=== PATIENT | female | born 1985 | race Caucasian/White ===

== ENCOUNTER → 2017-12-21 | Outpatient (CLI) | payer MEDICAID ==
--- NOTE | 2017-12-21 10:29 | RADIOLOGY REPORT (SQ) ---
EXAM DESCRIPTION: CT PELVIS COMBO COMPLETED DATE/TIME: 12/21/2017 8:17 am REASON FOR STUDY: RLQ PAIN R10.31 RIGHT LOWER QUADRANT PAIN COMPARISON: 10/23/2015 TECHNIQUE: CT scan of the pelvis performed without and with intravenous contrast and with oral contr ast. Images reviewed with soft tissue and bone windows. Reconstructed coronal and sagittal MPR imag es reviewed. All images stored on PACS. All CT scanners at this facility use dose modulation, iterative reconstruction, and/or weight based d osing when appropriate to reduce radiation dose to as low as reasonably achievable (ALARA). [facility]: Dose Right [facility]: CareDose [facility]: Dose Right [facility]: Teradose 4D [facility]: [employer] RADIATION DOSE: CT Rad equipment meets quality standard of care and radiation dose reduction techniq ues were employed. CTDIvol: 12.2 - 13.9 mGy. DLP: 1250 mGy-cm. mGy. LIMITATIONS: None. FINDINGS: PELVIC BONES: No acute fracture. No worrisome bone lesions. VISUALIZED SPINE: No acute findings. HIP(S): No acute fracture or dislocation. No worrisome bone lesions. PELVIC SOFT TISSUES: Normal. Normal appendix. EXTRAPELVIC SOFT TISSUES: No significant findings. OTHER: No other significant finding. IMPRESSION: NO ACUTE OR SIGNIFICANT FINDINGS. TECHNICAL DOCUMENTATION: JOB ID: [id number] Quality ID # [id number]: Final reports with documentation of one or more dose reduction techniques (e.g., Au tomated exposure control, adjustment of the mA and/or kV according to patient size, use of iterative reconstruction technique) 2010 [employer]- All Rights Reserved Reading location - IP/workstation name: [email or web address]
== END ==
LOC: RAD 07:45
PROVIDERS: ATTEND Specialist
DX: R10.31 Right lower quadrant pain (principal)
CPT/HCPCS: 72194; 82565

== ENCOUNTER 2018-03-10 01:45 | Emergency (ER) | payer MEDICAID ==
[2018-03-10] MEDS ORDERED: KETOROLAC TROMETHAMINE INJ/PF 30 MG/1 ML SDV IV ONE (02:27)
--- NOTE | 2018-03-10 02:29 | ER Document Report ---
ED GI/ - General Chief Complaint: Lower Abdominal Pain Stated Complaint: ABDOMINAL PAIN Time Seen by Provider: 03/10/18 02:16 Primary Care Provider: POPPY ARMSTRONG MD [EMERITUS] - Follow up as needed Notes: Patient is a 33-year-old female that comes to the emergency department for chief complaint of sharp pain in the right lower abdominal/pelvic area. She states she intermittently gets pains, usually on the side, frequently at the time of her menstrual cycle, however she is not currently on her menstrual cycle and this pain is worse than usual. She does have a history of kidney stones but states this feels very different. Uncertain of history of ovarian cysts. Denies dysuria, vaginal discharge or bleeding, fever/chills, nausea/vomiting. Some difficulty moving her bowels at times but not recently noticeable. Past medical history of . She states she recently had a pelvic exam which was normal. Denies any other medical history. TRAVEL OUTSIDE OF THE [place] IN LAST 30 DAYS: No - Related Data Allergies/Adverse Reactions: latex [Latex] Allergy (Severe, Verified 03/10/18 03:59) Anaphylaxis Penicillins Allergy (Severe, Verified 03/10/18 03:59) Anaphylaxis acetaminophen [From Vicodin] Allergy (Mild, Verified 03/10/18 03:59) VOMITING hydrocodone [From Vicodin] Allergy (Verified 03/10/18 03:59) VOMITING Past Medical History - General Information source: Patient - Social History Smoking Status: Never Smoker Frequency of alcohol use: None Drug Abuse: None Lives with: Family Family History: Reviewed & Not Pertinent Pulmonary Medical History: Reports: Hx Asthma Endocrine Medical History: Reports: Hx Diabetes Mellitus Type 2 Renal/ Medical History: Reports: Hx Kidney Stones Past Surgical History: Reports: Hx Section, Hx Gynecologic Surgery - LEEP, Hx Orthopedic Surgery - right ankle, Hx Tonsillectomy - Immunizations Hx Diphtheria, Pertussis, Tetanus Vaccination: Yes Review of Systems - Review of Systems Constitutional: No symptoms reported EENT: No symptoms reported Cardiovascular: No symptoms reported Respiratory: No symptoms reported Gastrointestinal: See HPI Genitourinary: See HPI Female Genitourinary: See HPI Musculoskeletal: No symptoms reported Skin: No symptoms reported Hematologic/Lymphatic: No symptoms reported Neurological/Psychological: No symptoms reported Physical Exam - Vital signs Vitals: Temp Pulse Resp BP Pulse Ox 98.8 F 80 18 136/91 H 98 03/10/18 01:58 03/10/18 01:58 03/10/18 01:58 03/10/18 01:58 03/10/18 01:58 - Notes Notes: GENERAL: Alert, interacts well. No acute distress. HEAD: Normocephalic, atraumatic. EYES: Pupils equal, round, and reactive to light. Extraocular movements intact. ENT: Oral mucosa moist, tongue midline. Oropharynx unremarkable. Airway patent. Nares patent, no nasal septal hematoma, TM's intact. NECK: Full range of motion. Supple. Trachea midline. LUNGS: Clear to auscultation bilaterally, no wheezes, rales, or rhonchi. No respiratory distress. HEART: Regular rate and rhythm. No murmur ABDOMEN: General tenderness over the right lower abdomen and right pelvic area. No particular area of guarding, no specific McBurney's tenderness. No rigidity or distention. GENITOURINARY: Minimal whitish vaginal discharge, no cervical motion tenderness, no lesions, no bleeding, no concerning findings otherwise. Exam performed with Ernie RN at bedside. EXTREMITIES: Moves all 4 extremities spontaneously. No edema, normal radial and dorsalis pedis pulses bilaterally. No cyanosis. BACK: no cervical, thoracic, lumbar midline tenderness. No saddle anesthesia, normal distal neurovascular exam. NEUROLOGICAL: Alert and oriented x3. Normal speech. [cranial nerves II through XII grossly intact]. PSYCH: Normal affect, normal mood. SKIN: Warm, dry, normal turgor. No rashes or lesions noted. Course - Re-evaluation Re-evalutation: CBC, chemistry, urinalysis unremarkable. But is a test is negative. Ultrasound does not show ovarian cyst or concerning findings. Pelvic examination showing bacterial vaginosis but no other concerning finding. Because of patient's difficulty with bowel movements, negative workup to this point, I suspect she most likely has bowel source of her symptoms, probably stool retention. I do not suspect acute appendicitis based on her examination, on repeat examination her exam is actually very benign. I discussed different options including x-ray, CAT scan, medical therapy. At this time patient will be treated medically for suspected stool retention, treated for bacterial vaginosis, and strict return precautions were discussed. Discussed follow-up recommendations. Patient states understanding and agreement. Stable at time of discharge. - Vital Signs Vital signs: Temp Pulse Resp BP Pulse Ox 98.7 F 78 16 125/78 100 03/10/18 05:58 03/10/18 05:58 03/10/18 05:58 03/10/18 05:58 03/10/18 05:58 - Laboratory Result Diagrams: 03/10/18 03:05 03/10/18 03:05 Laboratory results interpreted by me: 03/10/18 03/10/18 03:05 03:05 Hgb 15.8 H Carbon Dioxide 34 H Discharge - Discharge Clinical Impression: Lower abdominal pain Condition: Stable Disposition: HOME, SELF-CARE Additional Instructions: Your ultrasound does not show any concerning findings. Your general workup does not show any other normality except bacterial vaginosis. You have been prescribed Flagyl for the bacterial vaginosis, however I suspect the cause of your pain is from your bowel. I recommend that you drink 1/4 to 1/2 of the bottle of magnesium citrate initially, wait a few hours, if no results drink the rest of the bottle, if symptoms continue I recommend that you take the Colace for the next 3 days or so as prescribed, use the Phenergan for nausea if needed, use the Bentyl for cramping if needed. Follow-up with primary care. Return if you worsen including severe worsening pain, vomiting, fever, or any other concerning or worsening symptoms. Prescriptions: Dicyclomine HCl [Bentyl 20 mg Tablet] 20 mg PO QID #20 tablet Docusate Sodium [Colace 100 mg Capsule] 100 mg PO ASDIR PRN #30 capsule PRN Reason: Metronidazole [Flagyl 500 mg Tablet] 500 mg PO BID 7 Days #14 tablet Promethazine HCl [Phenergan 25 mg Tablet] 25 mg PO Q6H PRN #15 tablet PRN Reason: Forms: Return to Work Referrals: POPPY ARMSTRONG MD [EMERITUS] - Follow up as needed
[2018-03-10 03:17] LABS: ABSOLUTE BASOPHILS # (AUTO) 0.1 10^3/uL (0.0-0.2); ABSOLUTE EOSINOPHILS # (AUTO) 0.2 10^3/uL (0.0-0.6); ABSOLUTE LYMPHOCYTES (AUTO) 2.6 10^3/uL (0.5-4.7); ABSOLUTE MONOCYTES (AUTO) 0.7 10^3/uL (0.1-1.4); ABSOLUTE NEUT (AUTO) 5.2 10^3/uL (1.7-8.2); BASOPHILS % (AUTO) 0.7 % (0-2); EOSINOPHILS % (AUTO) 1.7 % (0-6); HEMATOCRIT 45.6 % (36.0-47.0); HEMOGLOBIN 15.8 g/dL (12.0-15.5); MEAN CORPUSCULAR HEMOGLOBIN 31.8 pg (27.0-33.4); MEAN CORPUSCULAR HGB CONC 34.6 g/dL (32.0-36.0); MEAN CORPUSCULAR VOLUME 92 fl (80-97); MONOCYTES % (AUTO) 7.9 % (3-13); PLATELET COUNT 307 10^3/uL (150-450); RED BLOOD COUNT 4.97 10^6/uL (3.72-5.28); RED CELL DISTRIBUTION WIDTH 12.7 % (11.5-14.0); SEGMENTED NEUTROPHILS % (AUTO) 59.7 % (42-78); TOTAL CELLS COUNTED % (AUTO) 100 %; WHITE BLOOD COUNT 8.8 10^3/uL (4.0-10.5)
[2018-03-10 03:27] LABS: ANION GAP 8 (5-19); BLOOD UREA NITROGEN 9 mg/dL (7-20); CALCIUM 9.9 mg/dL (8.4-10.2); CARBON DIOXIDE 34 mmol/L (22-30); CHLORIDE 103 mmol/L (98-107); GLUCOSE 100 mg/dL (75-110); POTASSIUM 3.9 mmol/L (3.6-5.0); SODIUM 144.8 mmol/L (137-145)
[2018-03-10 03:28] LABS: AMORPHOUS SEDIMENT,URINE TRACE /HPF; APPEARANCE,URINE SLIGHTLY-CLOUDY; BILIRUBIN,URINE NEGATIVE (NEGATIVE); COLOR,URINE YELLOW; GLUCOSE, URINE NEGATIVE (NEGATIVE); KETONES,URINE NEGATIVE (NEGATIVE); LEUKOCYTE ESTERASE,URINE NEGATIVE (NEGATIVE); NITRITE,URINE NEGATIVE (NEGATIVE); PROTEIN,URINE NEGATIVE (NEGATIVE); URINE SPECIFIC GRAVITY 1.015; UROBILINOGEN,URINE NEGATIVE mg/dL (<2.0)
--- NOTE | 2018-03-10 03:45 | RADIOLOGY REPORT (SQ) ---
CLINICAL HISTORY: sharp right pelvic pain COMPARISON: None. 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 Endometrial measures 9 mm. Cervix measures 2.7 cm. The right ovary measures 3.1 x 1.9 x 2.3 cm and left ovary measures 2.8 x 2.7 x 2.3 cm. There is patent flow to both ovaries. IMPRESSION: Unremarkable study.
[2018-03-10] MEDS ORDERED: NORMAL SALINE 1000 ML 1,000 ML IV ONE (04:32)
[2018-03-10 05:18] LABS: BACTERIA (WET MOUNT) 3+ BACTERIA SEEN; EPITHELIALS (WET MOUNT) 3+ EPITHELIALS SEEN; RBCS (WET MOUNT) NO RBCS SEEN; T.VAGINALIS (WET MOUNT) NO TRICHOMONAS SEEN; WBCS (WET MOUNT) RARE WBCS SEEN; YEAST (WET MOUNT) NO YEAST SEEN
[2018-03-10] MEDS ORDERED: MAGNESIUM CITRATE 296 ML BOTTLE PO ONE (05:41)
[2018-03-10 05:58] VITALS: BP 125/78
[2018-03-10 06:44] LABS: CHLAM PCR NOT DETECTED (NOT DETECT); GON PCR NOT DETECTED (NOT DETECT)
== END 2018-03-10 05:59 | disposition home or self-care (01) ==
LOC: ER 01:45
DX: N76.0 Acute vaginitis (principal); B96.89 Other specified bacterial agents as the cause of diseases classified elsewhere; R10.30 Lower abdominal pain, unspecified; R10.31 Right lower quadrant pain; R10.2 Pelvic and perineal pain; J45.909 Unspecified asthma, uncomplicated; E11.9 Type 2 diabetes mellitus without complications
CPT/HCPCS: 99284; 96361; 96374; 36415; 87210; 85025; 81025; 80048; 81001; 87491; 87591; 76830; 93976; J3490; J1885; J7030

== ENCOUNTER 2018-06-23 08:57 | Emergency (ER) | payer MEDICAID ==
--- NOTE | 2018-06-23 09:25 | ER Document Report ---
ED Medical Screen (RME) - General Chief Complaint: Abdominal Pain Stated Complaint: ABDOMINAL PAIN Time Seen by Provider: 06/23/18 09:21 Primary Care Provider: CED GARCIA MD [Primary Care Provider] - Follow up as needed Mode of Arrival: Ambulatory Information source: Patient Notes: 33-year-old female presented to ED for complaint of right lower quadrant pain for 3 days this time. She states she had it in the past about 6 months ago and they thought that it might be diverticulitis but she has not had her follow-up with GI yet for further evaluation. She states she has had diarrhea for 2 days has not had any fevers has had nausea. She she states that the pain is pretty severe at times. Patient is alert oriented respirations regular and unlabored. Abdomen is soft bowel sounds present very tender to the right lower and upper quadrant. When the left lower quadrant is palpated she has pain on the right. I have greeted and performed a rapid initial assessment of this patient. A comprehensive ED assessment and evaluation of the patient, analysis of test results and completion of medical decision making process will be conducted by an additional ED providers. Dictation of this chart was performed using voice recognition software; therefore, there may be some unintended grammatical errors. TRAVEL OUTSIDE OF THE [place] IN LAST 30 DAYS: No - Related Data Allergies/Adverse Reactions: latex [Latex] Allergy (Severe, Verified 06/23/18 08:58) Anaphylaxis Penicillins Allergy (Severe, Verified 06/23/18 08:58) Anaphylaxis acetaminophen [From Vicodin] Allergy (Mild, Verified 06/23/18 08:58) VOMITING hydrocodone [From Vicodin] Allergy (Verified 06/23/18 08:58) VOMITING Past Medical History - Social History Chew tobacco use (# tins/day): No Frequency of alcohol use: Rare Drug Abuse: None Pulmonary Medical History: Reports: Hx Asthma Endocrine Medical History: Reports: Hx Diabetes Mellitus Type 2 Renal/ Medical History: Reports: Hx Kidney Stones. Denies: Hx Peritoneal Dialysis Past Surgical History: Reports: Hx Section, Hx Gynecologic Surgery - LEEP, Hx Orthopedic Surgery - right ankle, Hx Tonsillectomy - Immunizations Hx Diphtheria, Pertussis, Tetanus Vaccination: Yes Physical Exam - Vital signs Vitals: Temp Pulse Resp BP Pulse Ox 97.8 F 93 16 136/88 H 99 06/23/18 09:00 06/23/18 09:00 06/23/18 09:00 06/23/18 09:00 06/23/18 09:00 Course - Vital Signs Vital signs: Temp Pulse Resp BP Pulse Ox 97.8 F 93 16 136/88 H 99 06/23/18 09:00 06/23/18 09:00 06/23/18 09:00 06/23/18 09:00 06/23/18 09:00 Doctor's Discharge - Discharge Referrals: CED GARCIA MD [Primary Care Provider] - Follow up as needed
[2018-06-23 09:49] LABS: ABSOLUTE BASOPHILS # (AUTO) 0.1 10^3/uL (0.0-0.2); ABSOLUTE EOSINOPHILS # (AUTO) 0.1 10^3/uL (0.0-0.6); ABSOLUTE MONOCYTES (AUTO) 0.6 10^3/uL (0.1-1.4); ABSOLUTE NEUT (AUTO) 4.6 10^3/uL (1.7-8.2); BASOPHILS % (AUTO) 0.9 % (0-2); HEMATOCRIT 44.5 % (36.0-47.0); HEMOGLOBIN 15.4 g/dL (12.0-15.5); MEAN CORPUSCULAR HGB CONC 34.5 g/dL (32.0-36.0); MEAN CORPUSCULAR VOLUME 90 fl (80-97); MONOCYTES % (AUTO) 7.8 % (3-13); PLATELET COUNT 289 10^3/uL (150-450); RED BLOOD COUNT 4.95 10^6/uL (3.72-5.28); RED CELL DISTRIBUTION WIDTH 12.6 % (11.5-14.0); SEGMENTED NEUTROPHILS % (AUTO) 62.3 % (42-78); TOTAL CELLS COUNTED % (AUTO) 100 %; WHITE BLOOD COUNT 7.4 10^3/uL (4.0-10.5)
[2018-06-23 09:58] LABS: APPEARANCE,URINE CLEAR; BILIRUBIN,URINE NEGATIVE (NEGATIVE); COLOR,URINE YELLOW; GLUCOSE, URINE NEGATIVE (NEGATIVE); KETONES,URINE NEGATIVE (NEGATIVE); LEUKOCYTE ESTERASE,URINE NEGATIVE (NEGATIVE); NITRITE,URINE NEGATIVE (NEGATIVE); PROTEIN,URINE NEGATIVE (NEGATIVE); URINE SPECIFIC GRAVITY 1.016; UROBILINOGEN,URINE NEGATIVE mg/dL (<2.0)
[2018-06-23 10:09] LABS: ALANINE AMINOTRANSFERASE 33 U/L (9-52); ALBUMIN 4.2 g/dL (3.5-5.0); ALKALINE PHOSPHATASE 80 U/L (38-126); ANION GAP 10 (5-19); ASPARTATE AMINO TRANSFERASE 20 U/L (14-36); BILIRUBIN,DIRECT 0.2 mg/dL (0.0-0.4); BILIRUBIN,TOTAL 0.4 mg/dL (0.2-1.3); BLOOD UREA NITROGEN 13 mg/dL (7-20); CALCIUM 9.9 mg/dL (8.4-10.2); CARBON DIOXIDE 30 mmol/L (22-30); CHLORIDE 102 mmol/L (98-107); GLUCOSE 96 mg/dL (75-110); POTASSIUM 3.9 mmol/L (3.6-5.0)
--- NOTE | 2018-06-23 10:48 | RADIOLOGY REPORT (SQ) ---
EXAM DESCRIPTION: U/S NON-OB PELVIS TV W/O DOP COMPLETED DATE/TIME: 06/23/2018 10:12 am REASON FOR STUDY: right lower quad pain COMPARISON: 03/10/2018 TECHNIQUE: Dynamic and static grayscale images acquired of the pelvis via transvaginal approach and recorded on PACS. Additional selected color Doppler and spectral images recorded. LIMITATIONS: None. FINDINGS: UTERUS: There is a small calcification in the uterine fundus. ENDOMETRIAL STRIPE: No focal or generalized thickening. No masses. CERVIX: 2.8 cm. No nabothian cysts. RIGHT OVARY AND DOPPLER: Normal size. No worrisome masses. Normal arterial vascular flow without evid ence for torsion. LEFT OVARY AND DOPPLER: Normal size. No worrisome masses. Normal arterial vascular flow without evide nce for torsion. FREE FLUID: None noted. OTHER: No other significant finding. MEASUREMENTS: UTERUS: 8.4 x 4.9 x 3.9 cm. ENDOMETRIAL STRIPE: 7 mm. RIGHT OVARY: 3 x 2.1 x 2 cm. LEFT OVARY: 2.6 x 2.4 x 2 cm. IMPRESSION: There may be a small calcified fibroid in the uterine fundus. No other significant find ings. TECHNICAL DOCUMENTATION: JOB ID: [id number] [employer]- All Rights Reserved Rev-06/24 Reading location - IP/workstation name: [email or web address]
--- NOTE | 2018-06-23 11:21 | RADIOLOGY REPORT (SQ) ---
EXAM DESCRIPTION: KUB/ABDOMEN (SINGLE VIEW) COMPLETED DATE/TIME: 06/23/2018 11:08 am REASON FOR STUDY: RLQ abd pain COMPARISON: 01/05/2016 NUMBER OF VIEWS: One view. TECHNIQUE: Supine radiographic image of the abdomen acquired. LIMITATIONS: None. FINDINGS: BOWEL GAS PATTERN: Normal bowel gas pattern. No dilated loops. CALCIFICATIONS: No suspicious calcifications. SOFT TISSUES: No gross mass or suggestion of organomegaly. HARDWARE: None in the abdomen. BONES: No acute fracture. No worrisome bone lesions. OTHER: No other significant finding. IMPRESSION: NO RADIOGRAPHIC EVIDENCE FOR ACUTE ABDOMINAL DISEASE. TECHNICAL DOCUMENTATION: JOB ID: [id number] [employer]- All Rights Reserved Reading location - IP/workstation name: [email or web address]
[2018-06-23 11:47] VITALS: BP 109/72
--- NOTE | 2018-06-23 14:20 | ER Document Report ---
Entered by HORTENSIA DODSON SCRIBE 06/23/18 1018 Acting as scribe for:JOHNSON HUYNH MD ED General - General Chief Complaint: Abdominal Pain Stated Complaint: ABDOMINAL PAIN Time Seen by Provider: 06/23/18 09:21 Primary Care Provider: CED GARCIA MD [Primary Care Provider] - Follow up as needed Mode of Arrival: Ambulatory Information source: Patient, [facility] Records Notes: Patient is a 33 year old female presenting to the emergency department today complaining of abdominal pain with associated nausea. Patient states that the onset was x3 days ago and it has progressed since then. Patient states that coughing and walking exacerbates this pain. Patient states she took medicine for her diabetes but was taken off due to weight loss. Patient states she takes Synthroid. Patient has had multiple emergency department visits since the beginning of the year for right lower quadrant pain and diarrhea. Patient denies any vomiting. TRAVEL OUTSIDE OF THE [place] IN LAST 30 DAYS: No - Related Data Allergies/Adverse Reactions: latex [Latex] Allergy (Severe, Verified 06/23/18 08:58) Anaphylaxis Penicillins Allergy (Severe, Verified 06/23/18 08:58) Anaphylaxis acetaminophen [From Vicodin] Allergy (Mild, Verified 06/23/18 08:58) VOMITING hydrocodone [From Vicodin] Allergy (Verified 06/23/18 08:58) VOMITING Past Medical History - General Information source: Patient, [facility] Records - Social History Smoking Status: Current Some Day Smoker Cigarette use (# per day): Yes Chew tobacco use (# tins/day): No Frequency of alcohol use: Occasional Drug Abuse: None Lives with: Family Family History: Reviewed & Not Pertinent Patient has suicidal ideation: No Patient has homicidal ideation: No Pulmonary Medical History: Reports: Hx Asthma Endocrine Medical History: Reports: Hx Diabetes Mellitus Type 2 Renal/ Medical History: Reports: Hx Kidney Stones Past Surgical History: Reports: Hx Section, Hx Gynecologic Surgery - LEEP, Hx Orthopedic Surgery - right ankle, Hx Tonsillectomy - Immunizations Hx Diphtheria, Pertussis, Tetanus Vaccination: Yes Review of Systems - Review of Systems Constitutional: No symptoms reported EENT: No symptoms reported Cardiovascular: No symptoms reported Respiratory: No symptoms reported Gastrointestinal: Abdominal pain, Nausea Genitourinary: No symptoms reported Female Genitourinary: No symptoms reported Musculoskeletal: No symptoms reported Skin: No symptoms reported Hematologic/Lymphatic: No symptoms reported Neurological/Psychological: No symptoms reported -: Yes All other systems reviewed and negative Physical Exam - Vital signs Vitals: Temp Pulse Resp BP Pulse Ox 97.8 F 93 16 136/88 H 99 06/23/18 09:00 06/23/18 09:00 06/23/18 09:00 06/23/18 09:00 06/23/18 09:00 - Notes Notes: Physical Exam: General: Alert, appears well, patient reports that ambulating exacerbates her pain. HEENT: Normocephalic. Atraumatic. PERRL. Extraocular movements intact. Oropharynx clear. Neck: Supple. Non-tender. Respiratory: No respiratory distress. Clear and equal breath sounds bilaterally. Cardiovascular: Regular rate and rhythm. Abdominal: Hypoactive bowel sounds. Palpation of the upper abdomen causes pain in the lower abdomen. Right lower quadrant tenderness with palpation. No distension. Normal Bowel Sounds. Back: Non-tender. No deformity or step off. Extremities: Moves all four extremities. Upper extremities: Normal inspection. Normal ROM. Lower extremities: Normal inspection. No edema. Normal ROM. Neurological: Normal cognition. AAOx4. Normal speech. Psychological: Normal affect. Normal Mood. Skin: Warm. Dry. Normal color. Course - Re-evaluation Re-evalutation: 06/23/18 11:15 Patient's absolute neutrophil count is 4.6. Endovaginal ultrasound does not show any explanation for her pelvic pain. KUB shows a stool-filled right colon. When the patient was seen here on 03/10/2018, her pelvic ultrasound was similarly unremarkable, and the recommendations at discharge included drinking mag citrate. I suspect the problem is the same again on this visit. - Vital Signs Vital signs: Temp Pulse Resp BP Pulse Ox 98.0 F 65 16 109/72 96 06/23/18 11:41 06/23/18 11:41 06/23/18 11:41 06/23/18 11:41 06/23/18 11:41 - Laboratory Result Diagrams: 06/23/18 09:31 06/23/18 09:31 - Diagnostic Test Radiology reviewed: Image reviewed, Reports reviewed - KUB shows a large amount of stool in the right colon. Pelvic ultrasound is unremarkable showing essentially normal ovaries, with possible small calcified uterine fibroid. Discharge - Discharge Clinical Impression: Right lower quadrant abdominal pain Constipation Qualifiers: Constipation type: unspecified constipation type Qualified Code(s): K59.00 - Constipation, unspecified Condition: Stable Disposition: HOME, SELF-CARE Additional Instructions: Abdominal Pain: There are many causes of abdominal pain. Pain can mean a serious problem requiring surgery (such as appendicitis). It can also be an innocent problem that goes away on its own (such as a viral infection). Often, time must pass to determine the cause of pain. The physician does not feel that hospitalization is necessary, at present. Things may change within the next 24 hours. Call the doctor or come back for re- examination if any problems occur, such as: (1) Pain that becomes more severe, steady, or becomes concentrated in one specific area. Also, pain that is more severe with movement or coughing. (2) Vomiting that persists or becomes more frequent. (3) Blood in the vomitus, urine, or bowel movements. Blood in the stool may have a tarry or black appearance. (4) Shaking chills or fever greater than 100 degrees F. (5) The abdomen becomes more distended or swollen. (6) Bowel movements cease. (7) Failure to improve as expected. Constipation: Constipation is a common problem. It is especially likely as you get older. Constipation is a common cause of abdominal pain, but sometimes causes no symptoms at all. Causes of constipation include certain medications, dehydration, diets, inactivity, and low-fiber intake. Rarely, it can be a symptom of underlying disease. The physician has evaluated you for this. Avoid constipation by eating a diet high in fiber, fruits, and vegetables. Drink plenty of liquids. Get regular exercise. If possible, avoid constipating medicines like narcotic pain medication. Some vitamin tablets can cause constipation. Stool softeners may be needed for difficult cases. An excellent stool softener is Konsyl which is available at [employer], and [employer] drug store. Just add a teaspoon to a glass of pineapple or orange juice daily or twice a day if needed. Laxatives are useful for occasional constipation. You should use them only when necessary. Too-frequent use can make your bowels dependent on them. Some over the counter laxatives available without prescription are: Milk of Magnesia, 1-2 tablespoons twice a day Dulcolax, 5 mg pill or 10 mg suppository. Citrate of Magnesia, 4-5 ounces a day for a day or two For acute constipation, Fleet's Enemas and Dulcolax suppositories are helpful. Chronic, community organization worker use of laxatives or enemas is not a good idea. Your bowel may become dependant on them. You do not need to have a bowel movement every day. Many people do fine with a bowel movement every three or four days. You should call your doctor or return for re-evaluation if you pass blood in the stool, or if you develop fever or increasing abdominal pain. Your evaluation today suggests your abdominal pain may be coming from your right colon which is quite full of stool. Laboratory evaluation does not suggest an infectious process going on. The ultrasound did not show any abnormalities in your ovaries. The plain film x-ray of your abdomen did show considerable stool in the right colon where your discomfort is. On your 03/10/2018 ER visit for right lower quadrant abdominal pain, there was a recommendation to try mag citrate, and you are given a prescription for Colace. Both of these medications can be bought [id number]. Be sure you take your MiraLAX every day. Drink plenty of fluids. Drink a bottle of magnesium citrate today. Follow-up with your doctor if your abdominal discomfort does not improve after your bowels began moving. RETURN TO THE EMERGENCY ROOM IF ANY NEW OR WORSENING SYMPTOMS. Forms: Return to Work Referrals: CED GARCIA MD [Primary Care Provider] - Follow up as needed Scribe Attestation: 06/23/18 10:24 I personally performed the services described in the documentation, reviewed and edited the documentation which was dictated to the scribe in my presence, and it accurately records my words and actions. I personally performed the services described in the documentation, reviewed and edited the documentation which was dictated to the scribe in my presence, and it accurately records my words and actions.
== END 2018-06-23 12:08 | disposition home or self-care (01) ==
LOC: ER 08:57
DX: K59.00 Constipation, unspecified (principal); R10.31 Right lower quadrant pain; R11.0 Nausea; R05 Cough; F17.210 Nicotine dependence, cigarettes, uncomplicated; E11.9 Type 2 diabetes mellitus without complications; Z88.0 Allergy status to penicillin; Z91.040 Latex allergy status; Z88.6 Allergy status to analgesic agent
CPT/HCPCS: 36415; 74018; 76830; 80053; 81001; 84703; 85025; 99284

== ENCOUNTER → 2018-09-04 | Outpatient (CLI) | payer MEDICAID ==
--- NOTE | 2018-09-05 09:26 | RADIOLOGY REPORT (SQ) ---
EXAM DESCRIPTION: U/S THYROID/SFT TISS HD NECK COMPLETED DATE/TIME: 09/04/2018 5:04 pm REASON FOR STUDY: (E03.9)HYPOTHYROIDISM, UNSPECIFIED E03.9 HYPOTHYROIDISM, UNSPECIFIED COMPARISON: None. TECHNIQUE: Dynamic and static santo-scale images acquired of the thyroid gland. Selected additional c olor/power Doppler images recorded. All images stored to PACS. LIMITATIONS: None. FINDINGS: RIGHT LOBE: Unremarkable in size measuring 3.9 x 1.4 x 1.2 cm. Heterogeneous echotexture. There is a heterogeneous predominantly hyperechoic nodule with likely coarse calcification measurin g 6 x 5 x 6 mm within the right lower pole (TI-RADS 4). LEFT LOBE: Unremarkable in size measuring 3.9 x 1.3 x 1.1 cm. Heterogeneous echotexture. No discret e cystic or solid masses. ISTHMUS: Unremarkable in size measuring 3 mm. Heterogeneous echotexture. No cystic or solid masses. OTHER: No other significant finding. IMPRESSION: 1. 6 x 6 x 5 mm hypoechoic nodule within the right lower pole (TI rads 4) which does no t meet criteria for biopsy. Follow-up recommendations as below. The [employer] ([employer]) Thyroid Imaging Reporting And Data System (TI-RADS) is an ul trasound feature based summed scoring system of risk categorization and management recommendations fo r thyroid nodules. TI-RADS assessment categories are as follows: 0 - Incomplete exam: Additional imaging or comparison to prior examinations recommended. 1. - Benign: Fine-needle aspiration or follow-up not routinely recommended in the absence of clinical change. 2. - Not suspicious: Fine-needle aspiration or follow-up not routinely recommended in the absence of clinical change. 3. - Mildly suspicious: Fine-needle aspiration recommended if greater than or equal to 2.5 cm in size . Ultrasound follow-up recommended if greater than or equal to 1.5 cm in size. 4. - Moderately suspicious: Fine-needle aspiration recommended if greater than or equal to 1.5 cm in size. Ultrasound follow-up recommended if greater than or equal to 1.0 cm in size. 5. - Highly suspicious: Fine-needle aspiration recommended if greater than or equal to 1.0 cm in size . Ultrasound follow-up recommended if greater than or equal to 0.5 cm in size. TECHNICAL DOCUMENTATION: JOB ID: [id number] All Rights Reserved Reading location - IP/workstation name: [email or web address]
== END ==
LOC: RAD 16:20
PROVIDERS: ATTEND Nurse Practitioner Primary Care
DX: E03.9 Hypothyroidism, unspecified (principal)
CPT/HCPCS: 76536

== ENCOUNTER → 2018-09-29 | Outpatient (CLI) | payer MEDICAID ==
--- NOTE | 2018-09-29 14:44 | RADIOLOGY REPORT (SQ) ---
EXAM DESCRIPTION: CT ABD/PELVIS WITH IV ORAL COMPLETED DATE/TIME: 09/29/2018 2:20 pm REASON FOR STUDY: R10.31 RIGHT LOWER QUADRANT PAIN R10.31 RIGHT LOWER QUADRANT PAIN COMPARISON: 10/13/2015. TECHNIQUE: CT scan of the abdomen and pelvis performed using helical scanning technique with dynamic intravenous contrast injection. Oral contrast was given. . Images reviewed with lung, soft tissue, and bone windows. Reconstructed coronal and sagittal MPR images reviewed. Delayed images for evaluat ion of the urinary system also acquired. All images stored on PACS. All CT scanners at this facility use dose modulation, iterative reconstruction, and/or weight based d osing when appropriate to reduce radiation dose to as low as reasonably achievable (ALARA). [facility]: Dose Right [facility]: CareDose [facility]: Dose Right [facility]: Teradose 4D [facility]: [employer] CONTRAST TYPE AND DOSE: contrast/concentration: Isovue 350.00 mg/ml; Total Contrast Delivered: 96.0 ml; Total Saline Delivered: 71.0 ml RENAL FUNCTION: Creatinine: 0.5. RADIATION DOSE: CT Rad equipment meets quality standard of care and radiation dose reduction techniq ues were employed. CTDIvol: 11.8 - 13.6 mGy. DLP: 1470 mGy-cm.. LIMITATIONS: None. FINDINGS: LOWER CHEST: No abnormality. LIVER: No abnormality. SPLEEN: No abnormality. PANCREAS: No abnormality. GALLBLADDER: No abnormality. ADRENAL GLANDS: No abnormality. . RIGHT KIDNEY AND URETER: No abnormality. LEFT KIDNEY AND URETER:No abnormality. AORTA AND VESSELS: No aneurysm. No dissection. Renal arteries, SMA, celiac without stenosis. RETROPERITONEUM: No retroperitoneal adenopathy, hemorrhage or masses. BOWEL AND PERITONEAL CAVITY: No masses or inflammatory changes. No free fluid or peritoneal masses. APPENDIX: Normal. PELVIS: Uterus: No abnormality. Small follicular cyst right ovary. Urinary bladder: No abnormalit y. ABDOMINAL WALL: No masses. No hernias. BONES: No abnormality. IMPRESSION: NO SIGNIFICANT OR ACUTE FINDING IN THE ABDOMEN OR PELVIS ON CT SCAN WITH IV CONTRAST. TECHNICAL DOCUMENTATION: JOB ID: [id number] Quality ID # [id number]: Final reports with documentation of one or more dose reduction techniques (e.g., Au tomated exposure control, adjustment of the mA and/or kV according to patient size, use of iterative reconstruction technique) 2010 [employer]- All Rights Reserved Reading location - IP/workstation name: [email or web address]
== END ==
LOC: RAD 13:34
PROVIDERS: ATTEND Internal Medicine Gastroenterology
DX: N83.291 Other ovarian cyst, right side (principal); R10.31 Right lower quadrant pain
CPT/HCPCS: 74177; 82565

== ENCOUNTER 2019-08-12 03:32 | Emergency (ER) | payer MEDICAID ==
[2019-08-12 04:25] LABS: ABSOLUTE BASOPHILS # (AUTO) 0.1 10^3/uL (0.0-0.2); ABSOLUTE EOSINOPHILS # (AUTO) 0.1 10^3/uL (0.0-0.6); ABSOLUTE LYMPHOCYTES (AUTO) 2.5 10^3/uL (0.5-4.7); ABSOLUTE MONOCYTES (AUTO) 0.8 10^3/uL (0.1-1.4); ABSOLUTE NEUT (AUTO) 6.5 10^3/uL (1.7-8.2); BASOPHILS % (AUTO) 0.8 % (0-2); EOSINOPHILS % (AUTO) 1.4 % (0-6); HEMATOCRIT 43.9 % (36.0-47.0); HEMOGLOBIN 15.5 g/dL (12.0-15.5); LYMPHOCYTES % (AUTO) 24.6 % (13-45); MEAN CORPUSCULAR HEMOGLOBIN 31.9 pg (27.0-33.4); MEAN CORPUSCULAR HGB CONC 35.3 g/dL (32.0-36.0); MEAN CORPUSCULAR VOLUME 90 fl (80-97); MONOCYTES % (AUTO) 8.3 % (3-13); PLATELET COUNT 263 10^3/uL (150-450); RED BLOOD COUNT 4.87 10^6/uL (3.72-5.28); RED CELL DISTRIBUTION WIDTH 13.1 % (11.5-14.0); SEGMENTED NEUTROPHILS % (AUTO) 64.9 % (42-78); TOTAL CELLS COUNTED % (AUTO) 100 %
[2019-08-12 04:36] LABS: ALBUMIN 4.5 g/dL (3.5-5.0); ALKALINE PHOSPHATASE 68 U/L (38-126); ANION GAP 7 (5-19); ASPARTATE AMINO TRANSFERASE 22 U/L (14-36); BILIRUBIN,TOTAL 0.4 mg/dL (0.2-1.3); BLOOD UREA NITROGEN 10 mg/dL (7-20); CALCIUM 9.7 mg/dL (8.4-10.2); CARBON DIOXIDE 28 mmol/L (22-30); CHLORIDE 103 mmol/L (98-107); CREATINE KINASE 57 U/L (30-135); GLUCOSE 97 mg/dL (75-110); POTASSIUM 3.7 mmol/L (3.6-5.0); TOTAL PROTEIN 7.1 g/dL (6.3-8.2)
[2019-08-12 04:47] LABS: CREATINE KINASE MB 0.63 ng/mL (<4.55)
[2019-08-12 04:49] LABS: TROPONIN I < 0.012 ng/mL
--- NOTE | 2019-08-12 05:13 | RADIOLOGY REPORT (SQ) ---
AP Portable chest: 08/12/2019 4:12 AM CDT History: 34-year old patient with chest pain. Comparison: None available Findings: The cardiomediastinal silhouette is normal in size. No pneumothorax is seen. No acute airspace opacities are seen. No discrete pleural effusion is apparent. Impression: No acute airspace opacities are seen.
[2019-08-12] MEDS ORDERED: NORMAL SALINE 1000 ML 1,000 ML IV ONE (07:00)
--- NOTE | 2019-08-12 10:37 | ER Document Report ---
Entered by JACK LEIGH SCRIBE 08/12/19 0718 Acting as scribe for:TODD CAMEJO MD ED General - General Chief Complaint: Chest Pain Stated Complaint: CHEST PAIN,LEFT ARM PAIN,LEG PAIN Time Seen by Provider: 08/12/19 06:08 Primary Care Provider: CED GARCIA MD [Primary Care Provider] - Follow up as needed Information source: Patient Notes: This 34 year old female patient presents to the emergency department today with complaints of pain in her calves bilaterally. Patient states there was pain in her right calf x3 days ago and then pain in her left foot x2 days ago. Patient states her left calf also began to feel tight. Patient states she no longer has chest pain and thinks this was due to anxiety from her bilateral calf pain. Denies any covid exposure, denying any fever, chills, cough, or diarrhea. TRAVEL OUTSIDE OF THE [place] IN LAST 30 DAYS: No - Related Data Allergies/Adverse Reactions: latex [Latex] Allergy (Severe, Verified 09/11/18 08:53) Anaphylaxis Penicillins Allergy (Severe, Verified 09/11/18 08:53) Anaphylaxis hydrocodone [From Vicodin] Adverse Reaction (Verified 09/11/18 08:53) VOMITING Past Medical History - General Information source: Patient - Social History Smoking Status: Current Every Day Smoker Cigarette use (# per day): Yes Chew tobacco use (# tins/day): Yes Frequency of alcohol use: Occasional Drug Abuse: None Lives with: Family Family History: Reviewed & Not Pertinent, Arthritis Patient has homicidal ideation: No Pulmonary Medical History: Reports: Hx Asthma - childhood Endocrine Medical History: Reports: Hx Diabetes Mellitus Type 2 Renal/ Medical History: Reports: Hx Kidney Stones Past Surgical History: Reports: Hx Section, Hx Gynecologic Surgery - LEEP, Hx Orthopedic Surgery - right ankle, Hx Tonsillectomy - Immunizations Hx Diphtheria, Pertussis, Tetanus Vaccination: No Review of Systems - Review of Systems Constitutional: See HPI. denies: Chills, Fever EENT: No symptoms reported Cardiovascular: See HPI. denies: Chest pain Respiratory: See HPI. denies: Cough Gastrointestinal: See HPI. denies: Diarrhea Genitourinary: No symptoms reported Female Genitourinary: No symptoms reported Musculoskeletal: See HPI, Other - Pain in calves Skin: No symptoms reported Hematologic/Lymphatic: No symptoms reported Neurological/Psychological: No symptoms reported -: Yes All other systems reviewed and negative Physical Exam - Vital signs Vitals: Temp Pulse Resp BP Pulse Ox 97.7 F 102 H 18 137/94 H 100 08/12/19 03:43 08/12/19 03:43 08/12/19 03:43 08/12/19 03:43 08/12/19 03:43 - General General appearance: Appears well, Alert - HEENT Head: Normocephalic, Atraumatic Eyes: Normal Pupils: PERRL - Respiratory Respiratory status: No respiratory distress Chest status: Nontender Breath sounds: Normal Chest palpation: Normal - Cardiovascular Rhythm: Regular Heart sounds: Normal auscultation Murmur: No - Abdominal Inspection: Normal Distension: No distension Bowel sounds: Normal Tenderness: Nontender - Extremities General upper extremity: Normal inspection. No: Edema General lower extremity: Normal inspection, Nontender, Normal ROM, Normal strength. No: Edema - Neurological Neuro grossly intact: Yes Cognition: Normal Orientation: AAOx4 Speech: Normal - Psychological Associated symptoms: Normal affect, Normal mood - Skin Skin Temperature: Warm Skin Moisture: Dry Skin Color: Normal Course - Re-evaluation Re-evalutation: 08/12/19 10:30 Patient's vital signs are stable resting comfortably not showing any signs of distress. - Vital Signs Vital signs: Temp Pulse Resp BP Pulse Ox 97.7 F 102 H 16 117/79 97 08/12/19 04:13 08/12/19 03:43 08/12/19 09:01 08/12/19 09:01 08/12/19 09:01 08/12/19 10:32 Vital signs stable - Laboratory Result Diagrams: 08/12/19 04:00 08/12/19 04:00 Laboratory results interpreted by me: Labs within normal limits. 08/12/19 10:33 Patient's d-dimer was within normal limits so there is no real indication that patient has any marker for DVT or blood clots and patient's clinical exam did not disclose any Homans sign's or calf tenderness. - Diagnostic Test Radiology reviewed: Image reviewed, Reports reviewed Radiology results interpreted by me: 08/12/19 10:33 Chest x-ray clear no infiltrates normal-sized heart. - EKG Interpretation by Me Additional EKG results interpreted by me: 08/12/19 10:34 Twelve-lead EKG shows normal sinus rhythm rate of 77. First-degree AV block not ed. Discharge - Discharge Clinical Impression: Muscle strain, Viral syndrome Condition: Stable Disposition: HOME, SELF-CARE Instructions: Viral Syndrome ([facility]) Additional Instructions: Muscle Strain You have strained a muscle -- torn the fibers within the muscle. This often occurs with strenuous exertion, or during an injury that suddenly stretches the muscle. The seriousness of a strain varies. Some strains heal within days, others cause problems for months. X-rays cannot show a muscle strain. X-rays are taken only if symptoms suggest that a fracture could be present. The usual treatment of a muscle strain is rest and ice packs. Sometimes, a sling, splint, or crutches may be necessary to rest the muscle. The muscle can be used again once pain subsides. Severe strains require a special exercise and stretching program to prevent permanent stiffness and disability. Your doctor will advise you if this will be necessary. Call the doctor immediately if pain or swelling becomes severe, or if num bness or discoloration develop. Your complaint of leg pain that was also noted in both lower extremities on occasion in the past couple of days could represent dehydration as we talked about as well as could be due to muscle strain, as well as a viral syndrome where one has muscle cramps. There was no evidence that you had any blood clots in your extremities based on clinical exam and blood work. I recommend that you take [id number] Tylenol as needed for any muscle strain. Referrals: CED GARCIA MD [Primary Care Provider] - Follow up as needed I personally performed the services described in the documentation, reviewed and edited the documentation which was dictated to the scribe in my presence, and it accurately records my words and actions.
[2019-08-12 10:45] VITALS: BP 116/81
--- NOTE | 2019-08-12 17:17 | EKG REPORT ---
SEVERITY:- BORDERLINE ECG - SINUS RHYTHM BORDERLINE T ABNORMALITIES, ANTERIOR LEADS : Confirmed by: Rashida Kraft MD 12-Aug-2019 17:16:17
== END 2019-08-12 10:52 | disposition home or self-care (01) ==
LOC: ER 03:32
DX: T14.8XXA Other injury of unspecified body region, initial encounter (principal); X58.XXXA Exposure to other specified factors, initial encounter; B34.9 Viral infection, unspecified; M79.661 Pain in right lower leg; M79.662 Pain in left lower leg; I44.0 Atrioventricular block, first degree; F17.210 Nicotine dependence, cigarettes, uncomplicated; E11.9 Type 2 diabetes mellitus without complications; Z87.892 Personal history of anaphylaxis; Z91.040 Latex allergy status; Z88.0 Allergy status to penicillin
CPT/HCPCS: 93005; 99285; 96360; 36415; 82553; 82550; 84443; 85025; 81025; 80053; 84484; 85379; 71045; 93010; J7030

== ENCOUNTER 2019-12-16 14:16 | Emergency (ER) | payer MEDICAID ==
[2019-12-16] MEDS ORDERED: NORMAL SALINE 1000 ML 1,000 ML IV ONE (15:00)
[2019-12-16] MEDS ORDERED: KETOROLAC TROMETHAMINE INJ/PF 30 MG/1 ML SDV IV ONE (15:00)
[2019-12-16] MEDS ORDERED: ONDANSETRON HCL INJ/PF 4 MG/2 ML SDV IV ONE (15:00)
--- NOTE | 2019-12-16 15:04 | ER Document Report ---
ED Medical Screen (RME) - General Stated Complaint: SIDE PAIN, ABDOMINAL PAIN Time Seen by Provider: 12/16/19 14:57 Primary Care Provider: CED GARCIA MD [Primary Care Provider] - Follow up as needed Mode of Arrival: Ambulatory Information source: Patient Notes: 34-year-old female patient with history of kidney stones presenting with acute onset right flank pain. Patient reports associated nausea, denies any vomiting, fever or chills. She states that this morning the pain got worse, she now has pain at her urethra. Patient appears to be in moderate distress. She is hyperventilating and rocking back and forth in the chair. I have greeted and performed a rapid initial assessment of this patient. A comprehensive ED assessment and evaluation of the patient, analysis of test results and completion of the medical decision making process will be conducted by additional ED providers. I have specifically instructed the patient or family members with the patient to immediately return to any nursing staff should anything change in the patient's condition or with their chief complaint. TRAVEL OUTSIDE OF THE [place] IN LAST 30 DAYS: No - Related Data Allergies/Adverse Reactions: latex [Latex] Allergy (Severe, Verified 09/11/18 08:53) Anaphylaxis Penicillins Allergy (Severe, Verified 09/11/18 08:53) Anaphylaxis hydrocodone [From Vicodin] Adverse Reaction (Verified 09/11/18 08:53) VOMITING Home Medications: levothyroxine, phentermine, control patch, spironolactone, progesterone Past Medical History - Social History Chew tobacco use (# tins/day): No Frequency of alcohol use: Occasional Drug Abuse: None - Past Medical History Cardiac Medical History: Denies: Hx Coronary Artery Disease, Hx Heart Attack, Hx Hypertension Pulmonary Medical History: Reports: Hx Asthma - childhood Denies: Hx Bronchitis, Hx COPD, Hx Pneumonia Neurological Medical History: Denies: Hx Cerebrovascular Accident, Hx Seizures Endocrine Medical History: Reports: Hx Diabetes Mellitus Type 2 Renal/ Medical History: Reports: Hx Kidney Stones. Denies: Hx Peritoneal Dialysis Musculoskeltal Medical History: Denies Hx Arthritis Past Surgical History: Reports: Hx Section, Hx Gynecologic Surgery - LEEP, Hx Orthopedic Surgery - right ankle, Hx Tonsillectomy - Immunizations Hx Diphtheria, Pertussis, Tetanus Vaccination: No Physical Exam - Vital signs Vitals: Temp Pulse Resp BP Pulse Ox 98.8 F 56 L 20 155/85 H 100 12/16/19 14:19 12/16/19 14:19 12/16/19 14:19 12/16/19 14:19 12/16/19 14:19 Course - Vital Signs Vital signs: Temp Pulse Resp BP Pulse Ox 98.8 F 56 L 20 155/85 H 100 12/16/19 14:19 12/16/19 14:19 12/16/19 14:19 12/16/19 14:19 12/16/19 14:19 Doctor's Discharge - Discharge Referrals: CED GARCIA MD [Primary Care Provider] - Follow up as needed
[2019-12-16] MEDS ORDERED: PHENAZOPYRIDINE HCL 200 MG TABLET PO ONE ×2 (15:19→18:00)
--- NOTE | 2019-12-16 15:25 | ER Document Report ---
ED General - General Chief Complaint: Flank Pain Stated Complaint: SIDE PAIN, ABDOMINAL PAIN Time Seen by Provider: 12/16/19 14:57 Primary Care Provider: CED GARCIA MD [Primary Care Provider] - Follow up as needed Mode of Arrival: Ambulatory Information source: Patient Notes: Patient is a 34-year-old female coming in today with right flank pain, suprapubic pain, hematuria, intense urinary urgency. Symptoms have been going on for couple of days. History of both UTIs and kidney stones in the past. Patient is currently in a significant amount of pain and also nauseated. No fevers or shaking chills. Positive for back pain. TRAVEL OUTSIDE OF THE [place] IN LAST 30 DAYS: No - Related Data Allergies/Adverse Reactions: latex [Latex] Allergy (Severe, Verified 09/11/18 08:53) Anaphylaxis Penicillins Allergy (Severe, Verified 09/11/18 08:53) Anaphylaxis hydrocodone [From Vicodin] Adverse Reaction (Verified 09/11/18 08:53) VOMITING Home Medications: levothyroxine, phentermine, control patch, spironolactone, progesterone Past Medical History - General Information source: Patient - Social History Smoking Status: Current Every Day Smoker Chew tobacco use (# tins/day): No Frequency of alcohol use: Occasional Drug Abuse: None Family History: Reviewed & Not Pertinent, Arthritis - Past Medical History Cardiac Medical History: Denies: Hx Coronary Artery Disease, Hx Heart Attack, Hx Hypertension Pulmonary Medical History: Reports: Hx Asthma - childhood Denies: Hx Bronchitis, Hx COPD, Hx Pneumonia Neurological Medical History: Denies: Hx Cerebrovascular Accident, Hx Seizures Endocrine Medical History: Reports: Hx Diabetes Mellitus Type 2 Renal/ Medical History: Reports: Hx Kidney Stones. Denies: Hx Peritoneal Dialysis Musculoskeletal Medical History: Denies Hx Arthritis Past Surgical History: Reports: Hx Section, Hx Gynecologic Surgery - LEEP, Hx Orthopedic Surgery - right ankle, Hx Tonsillectomy - Immunizations Hx Diphtheria, Pertussis, Tetanus Vaccination: No Review of Systems - Review of Systems Notes: Constitutional: No fevers. No chills. Positive pain/distress EENT: No eye redness. No eye pain. No ear pain. No sore throat. Cardiovascular: No chest pain. No palpitations. Respiratory: No cough. No shortness of breath. No respiratory distress. Gastrointestinal: No abdominal pain. No nausea, vomiting, or diarrhea. Positive for flank pain Genitourinary: Atraumatic. No lesions. No pain. No discharge. Positive for hematuria and urgency Musculoskeletal: Atraumatic. No swelling. No deformities. Skin: No rash or lesions. Lymphatic: No swollen lymph nodes. Neurologic: No headache. No syncope. Psychiatric: No suicidal or homicidal ideation. Physical Exam - Vital signs Vitals: Temp Pulse Resp BP Pulse Ox 98.8 F 56 L 20 155/85 H 100 12/16/19 14:19 12/16/19 14:19 12/16/19 14:19 12/16/19 14:19 12/16/19 14:19 - Notes Notes: General: Moderate distress from pain Cardiac: Well-perfused. Regular rate and rhythm. No murmurs, rubs, or gallops. Pulmonary: No respiratory distress. No cyanosis. Bilateral lung fiels are clear to auscultation. Abdominal: Non-distended. Non-rigid. Bowels sounds are present in all four quadrants. No guarding or rebound. Tenderness to palpation over the suprapubic region HEENT: Head is atraumatic. Conjunctivae not reddened. No tearing. PERRL. EOMI. Orbits atraumatic. No periorbital swelling or erythema. Oropharynx is without erythema, swelling, or exudates. Neck: Supple. No adenopathy. No meningismus. Dermatologic: Warm with good turgor. No rash. Atraumatic. Chest: Atraumatic. No chest wall tenderness to palpation. Musculoskeletal: Moves all extremities well. No range of motion deficits. no muscular or joint tenderness. No paraspinal muscle tenderness. no midline spinal tenderness or step-off. Genitourinary: Examination deferred Neurologic: No gross neurologic deficits. Psychiatric: Normal mood. Course - Re-evaluation Re-evalutation: 12/16/19 15:23 Patient has symptoms typical for a urinary infection. However she has significant pain and nausea as well as a history of kidney stones and flank pain. Will need to get a CT scan without contrast to take a look to see if she has a stone or not. 12/16/19 17:07 Patient is currently a 1 out of 5 pain. He has a 3 mm distal right ureteral stone with mild hydro-. She has a urologist that she is seen in the past and will follow up. We will start her on some Flomax, Zofran, and Percocet - Vital Signs Vital signs: Temp Pulse Resp BP Pulse Ox 98.8 F 56 L 20 155/85 H 100 12/16/19 14:19 12/16/19 14:19 12/16/19 14:19 12/16/19 14:19 12/16/19 14:19 - Laboratory Result Diagrams: 12/16/19 15:30 12/16/19 15:30 Laboratory results interpreted by me: 12/16/19 12/16/19 12/16/19 15:05 15:30 15:30 WBC 14.7 H Absolute Neuts (auto) 11.4 H Sodium 136.5 L Urine Protein 100 H Urine Ketones 20 H Urine Blood LARGE H Discharge - Discharge Clinical Impression: Ureterolithiasis Condition: Good Disposition: HOME, SELF-CARE Instructions: Kidney Stone ([facility]) Additional Instructions: Use the strainer provided to strain your urine and collect the stone. Your doctor may wish to do an analysis of it to see what the composition is. Flomax 1 tab daily to help with the passage of the stone, drink plenty of clear liquids. Percocet as needed for moderate to severe pain. Zofran as needed for nausea. Turn to the ED if your pain is not controlled by medications Prescriptions: Oxycodone HCl/Acetaminophen [Percocet 5-325 mg Tablet] 1 tab PO Q4HP PRN #12 tab PRN Reason: Pain Scale Of 5 Ondansetron [Zofran Odt 4 mg Tablet] 4 mg PO Q6HP PRN #12 tab.rapdis PRN Reason: Tamsulosin HCl [Flomax] 0.4 mg PO DAILY #5 cap.er.24h Referrals: CED GARCIA MD [Primary Care Provider] - Follow up as needed
[2019-12-16] MEDS ORDERED: HYDROMORPHONE HCL INJ/PF 2 MG/ML AMPULE IV ONE ×2 (15:28→17:27)
[2019-12-16 15:54] LABS: APPEARANCE,URINE CLOUDY; BILIRUBIN,URINE NEGATIVE (NEGATIVE); COLOR,URINE AMBER; GLUCOSE, URINE NEGATIVE (NEGATIVE); KETONES,URINE 20 mg/dL (NEGATIVE); LEUKOCYTE ESTERASE,URINE NEGATIVE (NEGATIVE); NITRITE,URINE NEGATIVE (NEGATIVE); PROTEIN,URINE 100 mg/dL (NEGATIVE); URINE SPECIFIC GRAVITY 1.024; UROBILINOGEN,URINE NEGATIVE mg/dL (<2.0)
[2019-12-16 15:59] LABS: ABSOLUTE BASOPHILS # (AUTO) 0.1 10^3/uL (0.0-0.2); ABSOLUTE EOSINOPHILS # (AUTO) 0.1 10^3/uL (0.0-0.6); ABSOLUTE LYMPHOCYTES (AUTO) 2.1 10^3/uL (0.5-4.7); ABSOLUTE NEUT (AUTO) 11.4 10^3/uL (1.7-8.2); BASOPHILS % (AUTO) 0.7 % (0-2); EOSINOPHILS % (AUTO) 0.6 % (0-6); HEMATOCRIT 42.9 % (36.0-47.0); HEMOGLOBIN 14.8 g/dL (12.0-15.5); LYMPHOCYTES % (AUTO) 14.1 % (13-45); MEAN CORPUSCULAR HEMOGLOBIN 31.3 pg (27.0-33.4); MEAN CORPUSCULAR HGB CONC 34.6 g/dL (32.0-36.0); MEAN CORPUSCULAR VOLUME 91 fl (80-97); MONOCYTES % (AUTO) 6.7 % (3-13); PLATELET COUNT 311 10^3/uL (150-450); RED BLOOD COUNT 4.74 10^6/uL (3.72-5.28); RED CELL DISTRIBUTION WIDTH 12.7 % (11.5-14.0); SEGMENTED NEUTROPHILS % (AUTO) 77.9 % (42-78); TOTAL CELLS COUNTED % (AUTO) 100 %; WHITE BLOOD COUNT 14.7 10^3/uL (4.0-10.5)
[2019-12-16 16:19] LABS: ALBUMIN 4.2 g/dL (3.5-5.0); ALKALINE PHOSPHATASE 79 U/L (38-126); ANION GAP 12 (5-19); ASPARTATE AMINO TRANSFERASE 19 U/L (14-36); BILIRUBIN,DIRECT 0.1 mg/dL (0.0-0.4); BILIRUBIN,TOTAL 0.8 mg/dL (0.2-1.3); BLOOD UREA NITROGEN 11 mg/dL (7-20); CALCIUM 9.5 mg/dL (8.4-10.2); CARBON DIOXIDE 23 mmol/L (22-30); CHLORIDE 102 mmol/L (98-107); GLUCOSE 97 mg/dL (75-110); POTASSIUM 3.7 mmol/L (3.6-5.0)
--- NOTE | 2019-12-16 16:41 | RADIOLOGY REPORT (SQ) ---
EXAM DESCRIPTION: CT ABD/PELVIS NO ORAL OR IV IMAGES COMPLETED DATE/TIME: 12/16/2019 4:19 pm REASON FOR STUDY: right flank pain, hematuria COMPARISON: CT abdomen and pelvis 09/29/2018. TECHNIQUE: CT scan of the abdomen and pelvis performed without intravenous or oral contrast. Images reviewed with lung, soft tissue, and bone windows. Reconstructed coronal and sagittal MPR images revi ewed. All images stored on PACS. All CT scanners at this facility use dose modulation, iterative reconstruction, and/or weight based d osing when appropriate to reduce radiation dose to as low as reasonably achievable (ALARA). [facility]: Dose Right [facility]: CareDose [facility]: Dose Right [facility]: Teradose 4D [facility]: [employer] RADIATION DOSE: CT Rad equipment meets quality standard of care and radiation dose reduction techniq ues were employed. CTDIvol: 12.5 mGy. DLP: 646 mGy-cm.mGy. LIMITATIONS: None. FINDINGS: LOWER CHEST: No consolidation or pleural effusion. NON-CONTRASTED LIVER, SPLEEN, ADRENALS: Evaluation limited by lack of IV contrast. No identified sign ificant masses. PANCREAS: No peripancreatic inflammatory changes. GALLBLADDER: No identified stones by CT criteria. No inflammatory changes to suggest cholecystitis. RIGHT KIDNEY AND URETER: Assessment for masses limited by lack of IV contrast. There is mild right hydronephrosis and hydroureter. There is a 3 mm calculus at the base of the urinary bladder at the r ight UVJ. Nonobstructing calcifications at the right kidney are measuring up to 3 mm. LEFT KIDNEY AND URETER: Assessment for masses limited by lack of IV contrast. Nonobstructing calcif ications at the left kidney are measuring up to 3 mm calcifications. No hydronephrosis or hydrouret er. AORTA AND RETROPERITONEUM: No abdominal aortic aneurysm. No retroperitoneal masses or hemorrhage. BOWEL AND PERITONEAL CAVITY: No dilated bowel loops or inflammatory changes. No free fluid. APPENDIX: Normal. PELVIS, BLADDER, AND ABDOMINAL WALL:The urinary bladder is decompressed. The uterus is present. No free fluid. There is a small fat containing umbilical hernia. BONES: No significant findings. IMPRESSION: 1. Mild right hydroureteronephrosis with a 3 mm calculus at the base of the urinary blad anh at the right UVJ. 2. Bilateral nephrolithiasis. COMMENT: Quality ID # [id number]: Final reports with documentation of one or more dose reduction techniques (e.g., Automated exposure control, adjustment of the mA and/or kV according to patient size, use of iterative reconstruction technique) TECHNICAL DOCUMENTATION: JOB ID: [id number] 2010 [employer]- All Rights Reserved Reading location - IP/workstation name: [email or web address]
[2019-12-16] MEDS ORDERED: METOCLOPRAMIDE HCL INJ/PF 10 MG/2 ML SDV IV ONE (17:26)
[2019-12-16 17:54] VITALS: BP 150/88
== END 2019-12-16 17:58 | disposition home or self-care (01) ==
LOC: ER 14:16
DX: N13.2 Hydronephrosis with renal and ureteral calculous obstruction (principal); R31.9 Hematuria, unspecified; R11.0 Nausea; E11.9 Type 2 diabetes mellitus without complications; F17.200 Nicotine dependence, unspecified, uncomplicated; Z79.899 Other long term (current) drug therapy; Z79.3 Long term (current) use of hormonal contraceptives; Z87.892 Personal history of anaphylaxis; Z91.040 Latex allergy status; Z88.0 Allergy status to penicillin
CPT/HCPCS: 99285; 96361; 96374; 96375; 36415; 87086; 85025; 81025; 80053; 81001; 74176; J1885; J2765; J1170; J3490; J2405; J7030